=== PATIENT | male | born 1990 | race Two or more races ===

== ENCOUNTER 2024-08-21 23:11 | Inpatient (IN) | payer OTHER ==
[~2024-08-21] VITALS: Ht 190.5 cm; Wt 152.4 kg
[2024-08-21] MEDS ORDERED: PANTOPRAZOLE SODIUM IV 80 MG in IV DEXTROSE 5% 500 ML IV ONE (23:30)
[2024-08-21] MEDS ORDERED: ONDANSETRON 4 MG/2 ML VIAL ONE (23:42)
[2024-08-21] MEDS: IV NORMAL SALINE 1000 ML BAG IV ONE (23:43)
[2024-08-21] MEDS ORDERED: PANTOPRAZOLE SODIUM 40 MG VIAL ONE (23:43)
[2024-08-21 23:44] LABS: BASOPHILS # (AUTO) 0.1 K/UL (0.0-0.2); BASOPHILS % (AUTO) 0.5 % (0.0-2.0); EOSINOPHILS # (AUTO) 0.2 K/uL (0.0-0.7); EOSINOPHILS % (AUTO) 1.9 % (0.0-7.0); HEMATOCRIT 29.8 % (36.7-47.1); HEMOGLOBIN 10.2 g/dL (12.5-16.3); LYMPHOCYTES # (AUTO) 5.5 K/uL (0.8-4.8); LYMPHOCYTES % (AUTO) 50.1 % (20.5-51.5); MEAN CORPUSCULAR HEMOGLOBIN 30.5 uug (23.8-33.4); MEAN CORPUSCULAR HGB CONC 34 g/dL (32.5-36.3); MONOCYTES # (AUTO) 0.9 K/uL (0.1-1.30); MONOCYTES % (AUTO) 8.3 % (0.0-11.0); NEUTROPHILS # (AUTO) 4.3 K/uL (1.8-8.9); NEUTROPHILS % (AUTO) 39.2 % (38.5-71.5); PLATELET COUNT (AUTO) 197 K/uL (152-348); RED BLOOD CELL COUNT(AUTO) 3.34 MIL/uL (4.06-5.63); RED CELL DISTRIBUTION WIDTH 13.5 % (12.1-16.2)
[2024-08-21] MEDS: ONDANSETRON 4 MG/2 ML VIAL IV ONE (23:44)
[2024-08-21 23:54] LABS: ALBUMIN 2.9 g/dL (3.4-5.0); BILIRUBIN,DIRECT 0.1 mg/dL (0.0-0.2); BILIRUBIN,TOTAL 0.2 mg/dL (0.2-1.0); CALCIUM 8.4 mg/dL (8.5-10.1); CREATININE 1.1 mg/dL (0.6-1.3); POTASSIUM 3.2 mmol/L (3.5-5.1)
[2024-08-21] MEDS ORDERED: ESCI5TAB PO (23:55)
[2024-08-21] MEDS ORDERED: ATEN50TA PO (23:55)
[2024-08-21] MEDS: PANTOPRAZOLE SODIUM IV 80 MG in IV DEXTROSE 5% 100 ML IV ONE (23:58)
[2024-08-22 00:11] LABS: *OCCULT BLOOD STOOL POSITIVE (NEGATIVE)
[2024-08-22] MEDS ORDERED: METOCLOPRAMIDE HCL 10 MG/2 ML VIAL ONE (00:38)
[2024-08-22] MEDS: METOCLOPRAMIDE HCL 10 MG/2 ML VIAL IV ONE (00:48)
[2024-08-22] MEDS: IV NORMAL SALINE 1000 ML BAG IV ONE (00:54)
[2024-08-22] MEDS ORDERED: MORPHINE SULFATE 4 MG/1 ML DISP.SYRIN IV PRN (01:30)
[2024-08-22] MEDS ORDERED: METOCLOPRAMIDE HCL 10 MG/2 ML VIAL IV PRN (01:30)
[2024-08-22] MEDS ORDERED: REMEDY ESSENTIAL ZINC PASTE 113 GM TP PRN (01:30)
[2024-08-22] MEDS ORDERED: ACETAMINOPHEN 650 MG SUPP.RECT RC PRN (01:30)
[2024-08-22] MEDS: IV D5/ 0.9% NACL 1,000 ML IV PRN (02:27)
[2024-08-22 02:30] VITALS: BP 127/70; TEMP 98; O2SAT 100
[2024-08-22] MEDS ORDERED: PANTOPRAZOLE SODIUM 40 MG VIAL ONE (03:19)
[2024-08-22] MEDS: PANTOPRAZOLE SODIUM IV 80 MG in IV DEXTROSE 5% 500 ML IV SCH (03:30)
[2024-08-22 05:30] VITALS: BP 125/77; TEMP 97.7; O2SAT 100
[2024-08-22 07:06] LABS: HEMOGLOBIN 9.2 g/dL (12.5-16.3)
[2024-08-22] MEDS ORDERED: PROPOFOL 200 MG/20 ML BOTTLE ONE (08:35)
[2024-08-22] MEDS: ONDANSETRON 4 MG/2 ML VIAL IV PRN (09:00)
[2024-08-22] MEDS: PANTOPRAZOLE SODIUM 40 MG VIAL IV SCH ×2 (09:01→20:30)
[2024-08-22] MEDS ORDERED: ESCI10TA PO (09:12)
[2024-08-22 11:17] VITALS: BP 126/94; TEMP 97.4; O2SAT 100
[2024-08-22] MEDS: SUCRALFATE 1 G/10 ML LIQUID UDC PO SCH (11:59)
[2024-08-22 12:07] LABS: HEMATOCRIT 25.4 % (36.7-47.1); HEMOGLOBIN 8.9 g/dL (12.5-16.3)
[2024-08-22 15:45] VITALS: BP 138/95; TEMP 98.7; O2SAT 100
[2024-08-22 17:13] VITALS: O2SAT 98
[2024-08-22 17:59] LABS: HEMATOCRIT 22.7 % (36.7-47.1); HEMOGLOBIN 7.8 g/dL (12.5-16.3)
[2024-08-22 20:06] VITALS: BP 144/64; TEMP 97.8; O2SAT 98
[2024-08-22 20:28] LABS: BASOPHILS # (AUTO) 0.1 K/UL (0.0-0.2); BASOPHILS % (AUTO) 0.9 % (0.0-2.0); EOSINOPHILS # (AUTO) 0.1 K/uL (0.0-0.7); EOSINOPHILS % (AUTO) 0.7 % (0.0-7.0); HEMATOCRIT 21.9 % (36.7-47.1); HEMOGLOBIN 7.6 g/dL (12.5-16.3); LYMPHOCYTES # (AUTO) 3.1 K/uL (0.8-4.8); LYMPHOCYTES % (AUTO) 33.1 % (20.5-51.5); MEAN CORPUSCULAR HEMOGLOBIN 30.4 uug (23.8-33.4); MEAN CORPUSCULAR HGB CONC 35 g/dL (32.5-36.3); MEAN CORPUSCULAR VOLUME 87.9 fL (73.0-96.2); MONOCYTES # (AUTO) 0.8 K/uL (0.1-1.30); MONOCYTES % (AUTO) 8.6 % (0.0-11.0); NEUTROPHILS # (AUTO) 5.2 K/uL (1.8-8.9); NEUTROPHILS % (AUTO) 56.7 % (38.5-71.5); PLATELET COUNT (AUTO) 164 K/uL (152-348); RED CELL DISTRIBUTION WIDTH 13.8 % (12.1-16.2); WHITE BLOOD COUNT (AUTO) 9.2 K/uL (3.6-10.2)
[2024-08-22 20:30] LABS: DIFFERENTIAL COMMENT 1; RED BLOOD CELL COUNT(AUTO) 2.49 MIL/uL (4.06-5.63)
[2024-08-23] VITALS (11 sets, daily range): BP systolic 95–138; BP diastolic 42–90; TEMP 97.8–98.7; O2SAT 96–100
[2024-08-23] MEDS: SUCRALFATE 1 G TABLET PO SCH (06:34)
[2024-08-23 07:18] LABS: HEMATOCRIT 21.9 % (36.7-47.1); HEMOGLOBIN 7.7 g/dL (12.5-16.3); MEAN CORPUSCULAR HEMOGLOBIN 31.2 uug (23.8-33.4); MEAN CORPUSCULAR HGB CONC 35 g/dL (32.5-36.3); MEAN CORPUSCULAR VOLUME 88.6 fL (73.0-96.2); PLATELET COUNT (AUTO) 155 K/uL (152-348); RED BLOOD CELL COUNT(AUTO) 2.47 MIL/uL (4.06-5.63); RED CELL DISTRIBUTION WIDTH 13.8 % (12.1-16.2); WHITE BLOOD COUNT (AUTO) 6.8 K/uL (3.6-10.2)
[2024-08-23 07:19] LABS: BASOPHILS % (AUTO) 0.6 % (0.0-2.0); EOSINOPHILS # (AUTO) 0.1 K/uL (0.0-0.7); EOSINOPHILS % (AUTO) 1.5 % (0.0-7.0); LYMPHOCYTES # (AUTO) 2.3 K/uL (0.8-4.8); LYMPHOCYTES % (AUTO) 33.5 % (20.5-51.5); MONOCYTES # (AUTO) 0.6 K/uL (0.1-1.30); MONOCYTES % (AUTO) 8.4 % (0.0-11.0); NEUTROPHILS # (AUTO) 3.8 K/uL (1.8-8.9)
[2024-08-23 08:19] LABS: CALCIUM 8.2 mg/dL (8.5-10.1); POTASSIUM 3.8 mmol/L (3.5-5.1)
[2024-08-23 08:20] LABS: MAGNESIUM 1.6 mg/dL (1.8-2.4); PHOSPHOROUS 3.4 mg/dL (2.5-4.9)
[2024-08-23] MEDS: ESCITALOPRAM OXALATE 10 MG TABLET PO SCH (08:40)
[2024-08-23] MEDS: ATENOLOL 50 MG TABLET PO SCH (08:41)
[2024-08-23] MEDS: MAGNESIUM OXIDE 400 MG TABLET PO ONE (10:29)
[2024-08-23 12:49] LABS: HEMATOCRIT 23.4 % (36.7-47.1)
[2024-08-23 19:21] LABS: HEMATOCRIT 23.2 % (36.7-47.1); HEMOGLOBIN 7.8 g/dL (12.5-16.3)
[2024-08-24] VITALS: BP 125/68; TEMP 97.8; O2SAT 99
[2024-08-24 01:24] VITALS: BP 125/68; TEMP 98
[2024-08-24 04:00] VITALS: BP 128/60; TEMP 98.5; O2SAT 100
[2024-08-24 06:54] LABS: BASOPHILS % (AUTO) 0.5 % (0.0-2.0); EOSINOPHILS # (AUTO) 0.1 K/uL (0.0-0.7); EOSINOPHILS % (AUTO) 2.1 % (0.0-7.0); HEMATOCRIT 26.6 % (36.7-47.1); HEMOGLOBIN 9.3 g/dL (12.5-16.3); LYMPHOCYTES % (AUTO) 30.3 % (20.5-51.5); MEAN CORPUSCULAR HEMOGLOBIN 31.1 uug (23.8-33.4); MEAN CORPUSCULAR HGB CONC 35 g/dL (32.5-36.3); MEAN CORPUSCULAR VOLUME 89.2 fL (73.0-96.2); MONOCYTES # (AUTO) 0.5 K/uL (0.1-1.30); MONOCYTES % (AUTO) 8.4 % (0.0-11.0); NEUTROPHILS # (AUTO) 3.8 K/uL (1.8-8.9); NEUTROPHILS % (AUTO) 58.7 % (38.5-71.5); PLATELET COUNT (AUTO) 171 K/uL (152-348); RED BLOOD CELL COUNT(AUTO) 2.98 MIL/uL (4.06-5.63); RED CELL DISTRIBUTION WIDTH 13.8 % (12.1-16.2); WHITE BLOOD COUNT (AUTO) 6.5 K/uL (3.6-10.2)
[2024-08-24 07:00] LABS: CALCIUM 8.7 mg/dL (8.5-10.1); POTASSIUM 3.5 mmol/L (3.5-5.1)
[2024-08-24 07:08] LABS: DIFFERENTIAL COMMENT 1
[2024-08-24 07:37] VITALS: BP 127/71; TEMP 98.7; O2SAT 100
[2024-08-24] MEDS ORDERED: PANT40TA2 PO (11:31)
[2024-08-24 11:37] VITALS: BP 115/63; TEMP 98.3; O2SAT 100
== END 2024-08-24 14:00 | disposition home or self-care (01) | DRG 377 ==
LOC: ER 23:12 → TELE3 08-22 01:46
PROVIDERS: ADMIT Nurse Practitioner Acute Care; ATTEND Nurse Practitioner Acute Care
PROC: 0DB68ZX Excision of Stomach, Via Natural or Artificial Opening Endoscopic, Diagnostic (ICD-10-PCS; principal; 2024-08-22)
PROC: 30233N1 Transfusion of Nonautologous Red Blood Cells into Peripheral Vein, Percutaneous Approach (ICD-10-PCS; 2024-08-23)
DX: K25.4 Chronic or unspecified gastric ulcer with hemorrhage (principal); K20.91 Esophagitis, unspecified with bleeding; D62 Acute posthemorrhagic anemia; Z68.41 Body mass index [BMI] 40.0-44.9, adult; E44.1 Mild protein-calorie malnutrition; K29.71 Gastritis, unspecified, with bleeding; K29.81 Duodenitis with bleeding; B96.81 Helicobacter pylori [H. pylori] as the cause of diseases classified elsewhere; E87.6 Hypokalemia; E66.9 Obesity, unspecified; I10 Essential (primary) hypertension; F32.A Depression, unspecified; F41.9 Anxiety disorder, unspecified; E88.09 Other disorders of plasma-protein metabolism, not elsewhere classified; R79.89 Other specified abnormal findings of blood chemistry; Z79.899 Other long term (current) drug therapy; G47.30 Sleep apnea, unspecified
CPT/HCPCS: 36415; 71045; 83690; 83735; 84100; 85018; 85025; 85610; 86850; 86900; 86901; 86920; A4663; G0378; J2405; J2470; J2765; J3490; J7040; J7042; J7060; P9016